=== PATIENT | male | born 1990 | race Caucasian/White ===

== ENCOUNTER 2023-01-02 12:14 | Emergency (ER) | payer OTHER, SELFPAY ==
--- NOTE | ~2023-01-02 | XR_ITS ---
EXAMINATION: XR HAND, LEFT CLINICAL INFORMATION: Left thumb laceration, question bony involvement COMPARISON: None available. TECHNIQUE: PA, lateral, and oblique views of the left hand. FINDINGS: The bones and soft tissues are normal. No fracture. Alignment is anatomic. Joint spaces are maintained. No erosions or soft tissue calcifications. XR/XR hand LT min 3V IMPRESSION: Unremarkable left hand.
--- NOTE | 2023-01-02 12:16 | ED_ITS ---
HPI - Wound/Laceration General Chief Complaint: Wound/Laceration Stated Complaint: thulmb lac Time Seen by Provider: 01/02/23 12:25 Source: patient Mode of arrival: ambulatory Limitations: no limitations History of Present Illness HPI narrative: 32 y o male presenting for evaluation of laceration of L thumb. States this happened within the last 30 minutes, states he was trying to open a container of caulk and the hook on the container got stuck on his thumb and cut it. Reports immediate pain and intermittent numbness to the thumb. States it is about 2cm in size, currently has direct pressure on it with paper towels. Reports severe pain with movement and feels acute unable to move his finger. Unsure of last tetanus. Denies fevers, chills, chest pain, shortness of breath, abdominal pain, dizziness, nausea and vomiting. Related Data Previous Rx's Medication Instructions Recorded doxycycline hyclate 100 mg capsule 100 mg PO BID 10 days #20 caps 01/02/23 morphine 15 mg immediate release 15 mg PO Q6H PRN pain 5 days #6 01/02/23 tablet tabs Allergies Allergy/AdvReac Type Severity Reaction Status Date / Time Penicillins Allergy Anaphylaxis Verified 01/02/23 12:16 vancomycin Allergy Anaphylaxis Verified 01/02/23 12:16 Review of Systems Review of Systems: Constitutional : No Weight loss, No Fever, No Chills, No Fatigue, No Malaise ENT/Mouth : No sore throat, No Rhinorrhea Eyes: No Eye Pain, No Swelling, No Redness Cardiovascular : No Chest Pain, No SOB, No Dyspnea on Exertion, No Orthopnea, No Edema, No Palpitations Respiratory : No Cough, No Sputum, No Wheezing Gastrointestinal : No Nausea, No Vomiting, No Diarrhea, No Constipation, No abdominal Pain, No Hematochezia, No Melena Genitourinary : No Dysuria, No Urinary Frequency, No Hematuria, Musculoskeletal : + joint pain, No Myalgias, + Joint Swelling Skin : No Skin Lesions, No rash Neuro : No Weakness, No Numbness, No Dizziness, No Headache Psych : No Anxiety/Panic, No Depression All other systems reviewed and are negative Yes all other systems are reviewed and are negative PMFSH Past Medical History Attestation statement: The following information was validated with the patient. Source: old records reviewed and nursing notes reviewed Social History Social History Advance Directives: No Advance Directives Information Provided: No Physical Exam Vital Signs: Vital Signs: Last Vital Signs Temp 97.5 F 01/02/23 12:17 Pulse 77 01/02/23 12:17 Resp 18 01/02/23 12:17 BP 83/56 L 01/02/23 12:17 Pulse Ox 97 01/02/23 12:17 O2 Del Method Room Air 01/02/23 12:17 BMI result Body Mass Index 28.9 vss Appearance: Alert.? Oriented X3.? No acute distress.? Head: Normocephalic, atraumatic, no step-offs or deformities Eyes: Pupils equal, round and reactive to light.? CVS: Normal heart rate and rhythm.? Pulses normal.? Respiratory: No respiratory distress.? Breath sounds normal.? Abdomen: Soft and nontender.? Skin: Skin warm and dry.? Normal skin color.? Normal skin turgor.? Extremities: No lower extremity edema.? No calf ttp. 5/5 strength to bilateral upper and lower extremities + painful rom to L. thumb and limited due to pain ( reports excruciating pain w/ movement) reports diminished sensation to L thumb d istally. Capillary refill <2 seconds to b/l UE digits. No wrist drop. TTP to PIP Back: No midline tenderness, no C-spine tenderness, full range of motion, no CVA tenderness bilaterally Neuro: Oriented X 3.? No motor deficit.? No sensory deficit. CN 2-12 intact Course Course Course Narrative: This is an RME: Additional HPI, ROS, PE not included below will be deferred to primary provider. Patient is a 32-year-old male who presents emergency department for evaluation of a laceration to the left thumb sustained prior to arrival with a razor blade while attempting to cut a tube of caulking. laceration over dorsal aspect. No anticoagulants. last tetanus approx 7yrs ago. Plan: [facility] Reevaluation(s) Reevaluation #1: xray negative. however still in significant pain morphine given for pain control. will dc home on doxy due to pnc allergy will have him follow up with hand. Educated patient on diagnosis and treatment plan, answered all question, patient verbalizes understanding. At this time patient will be discharged home, advised to return with new or worsening symptoms. Educated on worrisome signs and symptoms and when to return. At this time I feel comfortable discharge home. Time: 14:25 Medications Administered Discontinued Medications Generic Name Dose Route Start Last Admin Trade Name Shelley PRN Reason Stop Dose Admin Diphtheria/Tetanus/Acell Pertussis 0.5 ml 01/02/23 12:27 01/02/23 12:56 Diphth,Pertus(Acell),Tet Adult 0.5 Ml Syringe IM 01/02/23 12:28 0.5 ml .ONCE ONE Administration Morphine Sulfate 15 mg 01/02/23 13:14 01/02/23 13:24 Morphine Sulfate Immed Release 15 Mg Tablet PO 01/02/23 13:15 15 mg ONCE ONE Administration Medical Decision Making Medical Decision Making [facility] Narrative: 1330 32-year-old male presents with laceration to left thumb accidental. Physical exam significant for 5/5 strength to bilateral upper and lower extremities + painful rom to L. thumb and limited due to pain ( reports excruciating pain w/ movement) reports diminished sensation to L thumb distally. Capillary refill <2 seconds to b/l UE digits. No wrist drop. TTP to PIP Concerns for laceration with possible ligament or tendon injury. Will rule out fracture dislocation due to significant pain. No signs of neurovascular compromise or threat to Limb. Unlikely that this was a attempt for self-harm. Plan will obtain imaging and suture. Differential Diagnosis Differential Diagnoses: The differential diagnosis associated with the presentation includes Concerns for laceration with possible ligament or tendon injury. Will rule out fracture dislocation due to significant pain. No signs of neurovascular compromise or threat to Limb. Unlikely that this was a attempt for self-harm. Admission/Observation Consideration of admission/observation: Escalation of care including admission/observation considered Unlikely Independent Interpretation I performed an independent interpretation of an: Plain X-Ray Radiology Impression Discussion of test interpretation with radiology: I have reviewed the radiologist's reading. Critical Care Time Critical Care Time Critical Care Time: No Discharge Plan Discharge Clinical Impression: Laceration Patient Disposition: Home, Self-Care Instructions: Laceration (ED) Additional Instructions: Take your medications as prescribed. If you were prescribed antibiotics today, it is important that you take your medication to their entirety, do not skip any doses, do not finish them early. Follow-up with your primary care provider this week. Return to the emergency department with new or worsening symptoms. Such as fevers, chills, chest pain, shortness of breath, nausea, vomiting, dizziness, headache, vision changes, lethargy In case of emergency call 911 Return in 7- 10 days for suture removal Concerns for a possible tendon/ligament injury. No fractures or dislocations noted. Prophylactic antibiotics ordered. A narcotic has been sent to your pharmacy please take this as prescribed. Do not take more than the prescribed dose. Narcotic medications can cause addiction. Please do not mix them with alcohol. Do not take them while driving or operating machinery. Do not take them with any other narcotics. Do not share them with friends or family. They can cause constipation. Take them only for severe pain. FINDINGS: The bones and soft tissues are normal. No fracture. Alignment is anatomic. Joint spaces are maintained. No erosions or soft tissue calcifications. IMPRESSION: Unremarkable left hand. Prescriptions: New doxycycline hyclate 100 mg capsule 100 mg PO BID 10 Days Qty: 20 0RF morphine 15 mg tablet 15 mg PO Q6H PRN (Reason: pain) 5 Days Qty: 6 0RF Rx Instructions: Partial Fill upon patient request. Referrals: Physician,None [Primary Care Provider] - 2 days Caitlyn Angel MD [Physician] - 2 days Stand Alone Forms: Work/School Release Interventions: ED Discharge Assessment Last Done: 01/02/23 14:17 Discharge Date/Time: 01/02/23 14:23
[2023-01-02 12:17] VITALS: BP 83/56; PULSE 77; RESP 18; TEMP 36.4; O2SAT 97; BMI 28.9
[2023-01-02] MEDS: Diphth,Pertus(ACell),Tet Adult 0.5 ML SYRINGE IM (12:56)
[2023-01-02] MEDS: Morphine Sulfate Immed Release 15 MG TABLET PO (13:24)
== END 2023-01-02 14:23 | disposition home or self-care (01) ==
PROVIDERS: Emergency Provider Emergency Medicine Emergency Medical Services
DX: S61.012A Laceration without foreign body of left thumb without damage to nail, initial encounter (principal); S60.512A Abrasion of left hand, initial encounter; G89.29 Other chronic pain; W26.9XXA Contact with unspecified sharp object(s), initial encounter; Y93.9 Activity, unspecified; Y92.9 Unspecified place or not applicable; Y99.9 Unspecified external cause status; Z79.899 Other long term (current) drug therapy; Z23 Encounter for immunization
CPT/HCPCS: 12001; 73130; 90471; 90715; 99283; 99284